=== PATIENT | female | born 1975 | race African-American/Black ===

== ENCOUNTER 2019-11-05 00:57 | Emergency (ER) | payer OTHER ==
[~2019-11-05] VITALS: Ht 167.6 cm; Wt 63.5 kg
--- NOTE | 2019-11-05 01:12 | Emergency Room Report ---
History of Present Illness General Chief Complaint: Lower Extremity Injury Source: Patient Present Illness HPI Is a 44-year-old female presents after increased left-sided ankle pain. Patient had injured her ankle skating. Has been unable to ambulate since injury. She had been noted to have gross deformity and was placed in an air splint by EMS. She had been given fentanyl by EMS. Reports having significant pain to the area still. Injury occurred prior to arrival. Denies any prior past medical history. Had not been vomiting. Reports having recent alcohol intake. Allergies: Coded Allergies: No Known Allergies (Unverified , 11/05/19) Patient History Past Medical History: see triage record Reviewed Nursing Documentation: PMH: Agreed; PSxH: Agreed Nursing Documentation-PMH Past Medical History: No Stated History Review of Systems All Other Systems: negative except mentioned in HPI Physical Exam Vital Signs Date Time Temp Pulse Resp B/P (MAP) Pulse Ox O2 Delivery O2 Flow Rate FiO2 11/05/19 00:52 98.2 110 20 140/95 (110) 100 Room Air General Appearance: well appearing, no apparent distress, alert, GCS 15 Head: normocephalic, atraumatic ENT: hearing grossly normal, normal voice Neck: full range of motion, supple Respiratory: chest non-tender, lungs clear, no respiratory distress, speaking full sentences Cardiovascular #1: normal inspection Musculoskeletal: other - deformity, decreased ROM left ankle Neurologic: motor strength/tone normal, 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 Differential diagnosis include was not limited to fracture, dislocation, contusion, among others. Patient appears to have a dislocated ankle is with associated fracture. X-ray imaging was ordered. Patient given pain medications. Ankle was reduced with axial traction. Patient continued to be neurovascular intact after splinting. Post procedure x-ray showed adequate reduction. Patient was advised nonweightbearing status until seen by orthopedics. She was offered admission which she declined. Patient states she will follow-up with orthopedics. She advised to return if worse. Patient is given pain medication prescriptions. She was advised to keep her leg elevated as much as possible. she was given crutches. Ice was advised to return for any numbness or worsening pain or other concerns. Last Vital Signs Date Time Temp Pulse Resp B/P (MAP) Pulse Ox O2 Delivery O2 Flow Rate FiO2 11/05/19 00:52 98.2 110 20 140/95 (110) 100 Room Air Status: improved Disposition: HOME, SELF-CARE Condition: Stable Scripts Oxycodone/Acetaminophen 5-325* (PERCOCET 5-325 MG TABLET*) 1 Each Tablet 1 TAB ORAL Q6H PRN for For Pain, #20 TAB 0 Refills Prov: Milind Botello MD 11/05/19 Ibuprofen* (MOTRIN*) 600 Mg Tablet 600 MG ORAL Q6H PRN for For Pain, #30 TAB 0 Refills Prov: Milind Botello MD 11/05/19 Milind Botello MD Nov 05, 2019 01:12
[2019-11-05] MEDS ORDERED: Morphine Sulfate 4mg/ml Inj (IV USE ONLY) IVP ONE ×2 (01:15→03:15)
--- NOTE | 2019-11-05 03:30 | Diagnostic Imaging Report ---
EXAM: XR Left Ankle Complete, 3 or More Views CLINICAL HISTORY: PAIN TECHNIQUE: Frontal, lateral and oblique views of the left ankle. COMPARISON: None. FINDINGS: Bones/joints: There is marked disruption of the left ankle mortise. Transverse fracture of the medial malleolus. Oblique fracture of the lateral malleolus. Anterior displacement of the tibia relative to the talar dome. Hallux valgus deformity. No fracture of the base of the left fifth metatarsal. No dislocation. Soft tissues: Unremarkable. IMPRESSION: Extensive fractures about the left ankle joint. Dislocation of the left ankle joint. Disruption of the left ankle mortise.
[2019-11-05] MEDS ORDERED: IBUPROFEN600 MG ORAL (03:59)
[2019-11-05] MEDS ORDERED: PERCOCET 5-3251 EACH ORAL (03:59)
--- NOTE | 2019-11-05 04:08 | Diagnostic Imaging Report ---
EXAM: XR Left Ankle Complete, 3 or More Views CLINICAL HISTORY: PAIN TECHNIQUE: Frontal, lateral and oblique views of the left ankle. COMPARISON: None. FINDINGS: Bones/joints: Acute transverse fracture of the medial malleolus. Acute oblique fracture of the lateral malleolus. Acute fracture of the posterior malleolus. There is been adventist of the anatomic alignment of the tibia relative to the talar dome since the earlier study. There is widening of the ankle mortise. The ankle joint is in a semi-inversion. Soft tissues: Soft tissue swelling. IMPRESSION: Acute trimalleolar fractures. Widening of the ankle mortise. Improved anatomic relationship of the distal tibia to the patellar dome since the earlier study.
[2019-11-05 04:45] VITALS: BP 146/97
[2019-11-05] MEDS ORDERED: oxyCODONE HCL/Acetaminophen 5/325mg ORAL ONE (04:45)
--- NOTE | 2019-11-05 06:47 | Diagnostic Imaging Report ---
EXAM: XR Left Ankle Complete, 3 or More Views CLINICAL HISTORY: PAIN TECHNIQUE: Frontal, lateral and oblique views of the left ankle. COMPARISON: Earlier same day FINDINGS: There is an overlying plaster splint which slightly obscures bony detail. Again noted are fractures of the medial, posterior and lateral malleoli with disruption of the ankle mortise. There is widening of the medial clear space. IMPRESSION: Post-splinting of trimalleolar fracture with slight disruption of the ankle mortise, without significant change.
== END 2019-11-05 04:45 | disposition home or self-care (01) ==
LOC: EDBD 00:57 → EMR 01:16
DX: M25.572 Pain in left ankle and joints of left foot (principal)
CPT/HCPCS: 29515; 73600; 73610; 96374; 96376; J2270; Z7502; 99284